=== PATIENT | female | born 1980 | race Caucasian/White ===

== ENCOUNTER 2018-06-22 08:00 | Outpatient (CLI) | payer BC | END 2018-06-22 09:00 | disposition home or self-care (01) | LOC: D.MAMMO 08:00 | DX: Z12.31 Encounter for screening mammogram for malignant neoplasm of breast (principal) ==

== ENCOUNTER 2018-11-15 07:36 | Day surgery (SDC) | payer MEDICAID ==
[2018-10-15 16:19] LABS: HEMATOCRIT 40.4 % (36.0-48.0); HEMOGLOBIN 13.9 g/dL (12-16); MCH 29.1 pg (26.0-34.0); MCHC 34.4 g/dL (31.0-37.0); MCV 84.5 fL (80.0-100.0); RBC 4.78 10x6/uL (4.00-5.40); WBC 9.4 10x3/uL (4.8-10.8)
[~2018-11-15] VITALS: Ht 162.6 cm; Wt 68.5 kg
--- NOTE | ~2018-11-15 | OP ---
PATIENT NAME: HARIS OLEARY MEDICAL RECORD: [id number] :78 LOCATION:D.[facility] ADMISSION DATE: SURGEON: LISA ROCHA MD DATE OF OPERATION: 11/15/2018 PREOPERATIVE DIAGNOSIS: Sebaceous inclusion cyst, mid thoracic spine. POSTOPERATIVE DIAGNOSIS: Melanoma. SURGEON: Lisa Rocha MD DESCRIPTION OF TECHNIQUE: After induction of general endotracheal anesthesia, the patient was rolled prone on chest and hip rolls. The thoracic and lumbar spine were prepped and draped in usual sterile fashion. The area over the previous incision was prepped and draped in usual sterile fashion. After infiltration of 1:100,000 epinephrine and 1% lidocaine into the subcutaneous tissues, a longitudinal incision was made just off the midline above the level of the area of the previous incision. Upon entering the subdermal layer of skin, there was obvious hemorrhagic material associated with the so called sebaceous cyst. This area was approximately 1.5 cm in diameter. This hemorrhagic friable material appeared to be a melanoma grossly. It was sent to pathology. Frozen section indicated melanoma. Dr. Judd was present in the operating room. I discussed the case with Dr. Judd. Decision at that point was made to close the incision with a vertical mattress style suture and have Dr. Judd evaluate the patient in the following week and perform a surgery for melanoma with sentinel node dissection. So, therefore, I returned to the operating room and irrigated with copious amounts of Ancef irrigant solution. Meticulous hemostasis was maintained throughout the wound. I obtained a gross total resection of the melanoma, denuded the tumor wall of melanotic material. Reapproximated the skin incision with interrupted mattress style suture using 3-0 nylon. Sterile dressing was applied to the wound. The patient was awakened in good condition and taken to recovery. All counts were reported as correct. Estimated blood loss was minimal. Discussed findings with the patient after surgery. Plan for her to follow up with Dr. Judd in the following week. TRANSINT:[id number] Voice Confirmation ID: [id number] DOCUMENT ID: [id number] LISA ROCHA MD CC: [id number] DICTATION DATE: 11/28/18 0722 BURRER OPERATOR: 11/28/18 0934 [facility] 11/15/18 [place] [address]
[~2018-11-15 07:36] MED LIST: CAMILA0.35 MG PO; CYCLOBENZAPRINE10 MG PO; MAG-OXIDE400 MG PO; TOPAMAX50 MG PO; VALTREX1000 MG PO
[2018-11-15 07:56] LABS: HEMATOCRIT 41.9 % (36.0-48.0); HEMOGLOBIN 14.7 g/dL (12-16); MCH 28.8 pg (26.0-34.0); MCHC 35.1 g/dL (31.0-37.0); MCV 82.2 fL (80.0-100.0); MEAN PLATELET VOLUME 9.3 fL (7.4-10.4); RBC 5.1 10x6/uL (4.00-5.40); RDW 13.4 % (11.5-14.5); WBC 8.7 10x3/uL (4.8-10.8)
[2018-11-15 08:27] VITALS: BP 139/89; Ht 162.6 cm; Wt 68.5 kg
[2018-11-15 09:09] LABS: HCG URINE NEGATIVE (NEGATIVE)
--- NOTE | 2018-11-15 13:05 | NUR ---
PATIENT AMBULATES TO BATHROOM AND VOIDS LARGE AMOUNT IN TOILET WITHOUT DIFFICULTY
[2018-11-15] MEDS ORDERED: PERCOCET 10-321 EAC1 PO (13:34)
--- NOTE | 2018-11-15 13:40 | NUR ---
PATIENT DRESSED IN PERSONAL CLOTHING. LEFT HAND PIV DC'D WITH TIP INTACT. DISCHARGE INSTRUCTIONS REVIEWED WITH PATIENT AND SPOUSE. DISCHARGED HOME VIA WHEELCHAIR TO PRIVATE VEHICLE WITH SPOUSE
== END 2018-11-15 13:40 | disposition home or self-care (01) ==
LOC: D.OPS 07:36
PROVIDERS: Anesthesiology; ATTEND Neurological Surgery
DX: C43.59 Malignant melanoma of other part of trunk (principal); Z01.812 Encounter for preprocedural laboratory examination

== ENCOUNTER 2018-11-22 06:42 | Day surgery (SDC) | payer MEDICAID ==
[~2018-11-22] VITALS: Ht 162.6 cm; Wt 67.1 kg
--- NOTE | ~2018-11-22 | OP ---
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 POSTOPERATIVE DIAGNOSIS: Aneurysmal dermatofibroma of the back. PROCEDURE: Excision of benign back mass, totaling 3 cm. SURGEON: Aly Eng MD REPORT OF PROCEDURE: The patient was placed in the prone position and the back was prepped and draped in sterile fashion. This lesion was in the middle of the small of the back. There was a previous incision with sutures present in the midline. These sutures were removed. At this point, we ronaldo out an ovoid incision around the lesion. Using a #15 blade, this ovoid incision was cut out and electrocautery was used to dissect through the subcutaneous tissues around the mass. The mass was completely excised down to normal appearing fatty tissue. The mass was then marked appropriately and sent off for permanent specimen. The mass did not penetrate the fascia or underlying muscle tissues. The wound was then irrigated out with normal saline. The subcutaneous tissues were infused with 10 mL of 0.25% Marcaine and then reapproximated with interrupted 3-0 Vicryl and the skin was closed with running subcutaneous 5-0 Monocryl and dressed appropriately. COMPLICATIONS: None. CONDITION: Stable. ANESTHESIA: General endotracheal and local. BLOOD LOSS: Minimal. TRANSINT:[id number] Voice Confirmation ID: [id number] DOCUMENT ID: [id number] ALY ENG MD CC: LISA WILSON MD and LISA ROCHA [id number] DICTATION DATE: 11/22/18 1454 G[employer] APPEALS SPECIALIST: 11/22/18 2229 [facility] 11/22/18 [id number] [place] [id number]
[~2018-11-22 06:42] MED LIST changes: +PERCOCET 10-321 EAC1 PO
[2018-11-22 07:04] LABS: BASOPHILS 0.1 % (0-2); EOSINOPHILS 2.8 % (0-7); HEMATOCRIT 43.7 % (36.0-48.0); HEMOGLOBIN 15.2 g/dL (12-16); IMMATURE GRANULOCYTES 0.2 % (0-5); LYMPHOCYTES 20.1 % (15-50); MCH 29.1 pg (26.0-34.0); MCHC 34.8 g/dL (31.0-37.0); MCV 83.6 fL (80.0-100.0); MEAN PLATELET VOLUME 9.3 fL (7.4-10.4); MONOCYTES 9.6 % (2-11); NEUTROPHILS 67.2 % (40-80); PLATELET COUNT 296 10x3/uL (130-400); RBC 5.23 10x6/uL (4.00-5.40); RDW 13.8 % (11.5-14.5)
[2018-11-22 07:07] LABS: ANION GAP 14.6 mmol/L (8-16); CALCIUM 8.9 mg/dL (8.5-10.1); CARBON DIOXIDE 26.2 mmol/L (21.0-32.0); CREATININE - SERUM 0.9 mg/dL (0.6-1.3); POTASSIUM - SERUM 3.8 mmol/L (3.5-5.1)
[2018-11-22 07:17] LABS: INR 1.05 (0.85-1.17); PROTIME 13.2 SECONDS (11.6-15.0)
[2018-11-22 07:48] VITALS: BP 139/88; Ht 162.6 cm; Wt 67.1 kg
[2018-11-22 08:26] LABS: HCG URINE NEGATIVE (NEGATIVE)
[2018-11-22] MEDS ORDERED: PERCOCET 10-321 EAC1 PO (14:45)
--- NOTE | 2018-11-22 17:04 | NUR ---
PATIENT NAUSEATED, NO EMESIS. ZOFRAN GIVEN PER EMAR
--- NOTE | 2018-11-22 17:35 | NUR ---
PATIENT FEELS BETTER, NAUSEA AND PAIN IMPROVED. PATIENT AMBULATES TO BATHROOM AND VOIDS LARGE AMOUNT IN TOILET WITHOUT DIFFICULTY. LEFT AC PIV DC'D WITH TIP INTACT. PATIENT DRESSING IN PERSONAL CLOTHING 1750 DISCHARGE INSTRUCTIONS REVIEWED WITH PATIENT AND SPOUSE, DISCHARGED HOME VIA WHEELCHAIR TO PRIVATE VEHICLE WITH SPOUSE
== END 2018-11-22 17:50 | disposition home or self-care (01) ==
LOC: D.OPS 06:42 → D.PAN 07:30 → D.NM 07:30 → D.PAN 10:00 → D.OPS 17:50
PROVIDERS: Anesthesiology; ATTEND Surgery
DX: D23.5 Other benign neoplasm of skin of trunk (principal); Z01.812 Encounter for preprocedural laboratory examination

== ENCOUNTER → 2019-07-29 10:47 | Outpatient (CLI) | payer MEDICAID ==
[2018-11-22 07:48] VITALS: BMI 25.4
== END | disposition home or self-care (01) ==
LOC: D.US 07-24 10:00
PROVIDERS: ATTEND Family Medicine
DX: R10.2 Pelvic and perineal pain (principal)

== ENCOUNTER 2019-11-28 05:33 | Day surgery (SDC) | payer MEDICAID ==
[2019-11-26 12:10] LABS: ANION GAP 11.4 mmol/L (8-16); CALCIUM 8.9 mg/dL (8.5-10.1); CARBON DIOXIDE 25.4 mmol/L (21.0-32.0); POTASSIUM - SERUM 3.8 mmol/L (3.5-5.1)
[2019-11-26 12:15] LABS: BASOPHILS 0.4 % (0-2); EOSINOPHILS 3.6 % (0-7); HEMATOCRIT 39.2 % (36.0-48.0); HEMOGLOBIN 13.3 g/dL (12-16); IMMATURE GRANULOCYTES 0.3 % (0-5); LYMPHOCYTES 22.2 % (15-50); MCH 28.6 pg (26.0-34.0); MCHC 33.9 g/dL (31.0-37.0); MCV 84.3 fL (80.0-100.0); MEAN PLATELET VOLUME 9.3 fL (7.4-10.4); MONOCYTES 6.7 % (2-11); NEUTROPHILS 66.8 % (40-80); PLATELET COUNT 286 10x3/uL (130-400); RBC 4.65 10x6/uL (4.00-5.40); RDW 13.6 % (11.5-14.5); WBC 9.1 10x3/uL (4.8-10.8)
[~2019-11-28] VITALS: Ht 162.6 cm; Wt 77.6 kg
--- NOTE | ~2019-11-28 | OP ---
PATIENT NAME: HARIS OLEARY MEDICAL RECORD: [id number] :78 LOCATION:[facility] ADMISSION DATE: SURGEON: ALY ENG MD DATE OF OPERATION: 11/28/2019 PREOPERATIVE DIAGNOSES: 1. Pilonidal cyst. 2. Soft tissue 3 cm mass on the left upper back. 3. History of aneurysmal dermatofibroma of the back. POSTOPERATIVE DIAGNOSES: 1. Pilonidal cyst. 2. Soft tissue 3 cm mass on the left upper back. 3. History of aneurysmal dermatofibroma of the back. PROCEDURE: 1. Excision of 3 cm right mid back mass. 2. Pilonidal cystectomy. SURGEON: Aly Eng MD REPORT OF PROCEDURE: The patient's back and gluteal region were all prepped and draped in sterile fashion. The patient had a previous incision in the midline of the back that was completely healed from a resection of an aneurysmal dermatofibroma few years back. This mass was just to the right of this. We went ahead and used the same incision and using a 15 blade. We came through this incision and used electrocautery to come through this subcutaneous scar tissue. We then tunneled over to the right side and was able to encounter this firm fatty soft tissue mass. This mass was completely excised and sent off for permanent specimen. This mass was adherent to the patient's fascia, but did not penetrate through this. The mass itself was about 2 x 3 cm in greatest diameter and approximately 1 cm in depth. Once we had the mass removed, we inspected the region and saw there was no sign of any further masses, lesions or tunnels. The surrounding tissues were treated with electrocautery to stop any bleeding and then we irrigated out the wound with normal saline. A total of 10 mL of 0.25% Marcaine with epinephrine was infused into the surrounding tissues. The subcutaneous tissues were reapproximated with multiple interrupted 3-0 Vicryl and the skin was closed with running subcutaneous 5-0 Monocryl. We then approached the superior aspect of the patient's gluteal crease where there was a sacral dimple associated with a pilonidal cyst and surrounding tissue was quite firm. We made an ovoid incision 3 cm in length and using electrocautery, we came through the subcutaneous tissues around this mass. This mass extended all the way down to the tip of the coccyx. The tip of the coccyx itself appeared to be normal and then the fact that it was sticking posteriorly a little bit. Once we had this tissue completely excised, then we irrigated out the wound and any bleeding that was found, was treated with electrocautery. The subcutaneous tissues were reapproximated with multiple interrupted 3-0 Vicryl. We infused a total of 10 mL of 0.25% Marcaine with epinephrine. The skin incision was closed with a vertical mattress 2-0 nylons and then dressed appropriately. COMPLICATIONS: None. CONDITION: Stable. ANESTHESIA: General endotracheal and local. OPERATIVE REPORT [id number] HARIS OLEARY BLOOD LOSS: Minimal. TRANSINT:[id number] Voice Confirmation ID: [id number] DOCUMENT ID: [id number] ALY ENG MD CC: LISA WILSON MD [id number] DICTATION DATE: 11/28/19909 SAND POLISHER: 11/28/19 0954 [facility] [address] [place] [id number]
[~2019-11-28 05:33] MED LIST changes: +BP MED PO
[2019-11-28] MEDS ORDERED: TOPROL XL50 MG PO (05:51)
[2019-11-28 05:54] VITALS: BP 130/72; Ht 162.6 cm; Wt 77.6 kg
[2019-11-28 06:39] LABS: HCG URINE NEGATIVE (NEGATIVE)
[2019-11-28] MEDS ORDERED: HYDROCODONE-IB1 EAC3 PO (09:03)
== END 2019-11-28 10:29 | disposition home or self-care (01) ==
LOC: D.OPS 05:33 → D.PAN 07:30 → D.OPS 10:29
PROVIDERS: ATTEND Surgery
DX: L05.91 Pilonidal cyst without abscess (principal); R22.2 Localized swelling, mass and lump, trunk; E78.5 Hyperlipidemia, unspecified; I10 Essential (primary) hypertension; J45.909 Unspecified asthma, uncomplicated; Z72.0 Tobacco use; D23.9 Other benign neoplasm of skin, unspecified

== ENCOUNTER 2020-03-11 02:31 | Emergency (ER) | payer MEDICAID ==
[~2020-03-11] VITALS: Ht 162.6 cm; Wt 77.3 kg
[~2020-03-11 02:31] MED LIST changes: +HYDROCODONE-IB1 EAC3 PO; +TOPROL XL50 MG PO
[2020-03-11 02:35] VITALS: Ht 162.6 cm; Wt 77.3 kg
[2020-03-11 03:03] LABS: ANION GAP 11.3 mmol/L (8-16); CALCIUM 8.7 mg/dL (8.5-10.1); CARBON DIOXIDE 26.3 mmol/L (21.0-32.0); CREATININE - SERUM 1.4 mg/dL (0.6-1.3); POTASSIUM - SERUM 3.6 mmol/L (3.5-5.1)
[2020-03-11 03:04] LABS: BASOPHILS 0.3 % (0-2); EOSINOPHILS 3.1 % (0-7); HEMATOCRIT 42.3 % (36.0-48.0); HEMOGLOBIN 14.3 g/dL (12-16); IMMATURE GRANULOCYTES 0.2 % (0-5); LYMPHOCYTES 26.6 % (15-50); MCH 29.2 pg (26.0-34.0); MCHC 33.8 g/dL (31.0-37.0); MCV 86.5 fL (80.0-100.0); MEAN PLATELET VOLUME 9.2 fL (7.4-10.4); MONOCYTES 8.2 % (2-11); NEUTROPHILS 61.6 % (40-80); PLATELET COUNT 302 10x3/uL (130-400); RBC 4.89 10x6/uL (4.00-5.40); RDW 13.3 % (11.5-14.5); WBC 10.4 10x3/uL (4.8-10.8)
[2020-03-11 03:09] LABS: ALBUMIN 3.6 g/dL (3.4-5.0); BILIRUBIN - TOTAL 0.3 mg/dL (0.2-1.3); C-REACTIVE PROTEIN 1.8 mg/dL (0.0-0.9); PROTEIN - SERUM 7.2 g/dL (6.4-8.2)
[2020-03-11 03:24] LABS: BILIRUBIN NEGATIVE (NEGATIVE); GLUCOSE NEGATIVE (NEGATIVE); HCG URINE NEGATIVE (NEGATIVE); KETONE NEGATIVE (NEGATIVE); NITRITE NEGATIVE (NEGATIVE); SPECIFIC GRAVITY 1.015 (1.005-1.020); UROBILINOGEN NORMAL (NORMAL)
[2020-03-11 03:25] LABS: AMORPHOUS SEDIMENT <1+ /lpf (NONE SEEN); BACTERIA FEW /hpf (NEGATIVE); EPITHELIAL CELLS 0-5 /hpf (0-5); RED CELLS - URINE 0-5 /hpf (0-5); WHITE CELLS - URINE 0-5 /hpf (NEGATIVE)
[2020-03-11] MEDS ORDERED: FLOMAX0.4 MG PO (04:50)
[2020-03-11] MEDS ORDERED: MORPHINE IMMEDI15 MG PO (04:51)
[2020-03-11 05:08] VITALS: BP 147/91
== END 2020-03-11 05:10 | disposition home or self-care (01) ==
LOC: D.ER 02:31
PROVIDERS: Family Medicine
DX: N20.1 Calculus of ureter (principal); K80.20 Calculus of gallbladder without cholecystitis without obstruction; R16.0 Hepatomegaly, not elsewhere classified; I10 Essential (primary) hypertension; J45.909 Unspecified asthma, uncomplicated; R11.0 Nausea

== ENCOUNTER 2020-10-30 08:20 | Day surgery (SDC) | payer MEDICAID ==
[2020-10-27 12:13] LABS: ANION GAP 15.1 mmol/L (8-16); CALCIUM 8.7 mg/dL (8.5-10.1); CREATININE - SERUM 1.1 mg/dL (0.6-1.3); POTASSIUM - SERUM 4.1 mmol/L (3.5-5.1)
[2020-10-27 12:20] LABS: BASOPHILS 0.1 % (0-2); EOSINOPHILS 3.6 % (0-7); HEMOGLOBIN 13.9 g/dL (12-16); IMMATURE GRANULOCYTES 0.3 % (0-5); LYMPHOCYTE ABS# 1.96 10x3/uL (1.18-3.74); LYMPHOCYTES 24.7 % (15-50); MCH 28.7 pg (26.0-34.0); MCHC 33.9 g/dL (31.0-37.0); MCV 84.7 fL (80.0-100.0); MEAN PLATELET VOLUME 8.7 fL (7.4-10.4); MONOCYTES 9.2 % (2-11); NEUTROPHIL ABS# 4.94 10x3/uL (1.56-6.13); NEUTROPHILS 62.1 % (40-80); PLATELET COUNT 286 10x3/uL (130-400); RBC 4.84 10x6/uL (4.00-5.40); RDW 13.5 % (11.5-14.5)
[~2020-10-30] VITALS: Ht 162.6 cm; Wt 78.5 kg
--- NOTE | ~2020-10-30 | OP ---
PATIENT NAME: HARIS OLEARY MEDICAL RECORD: [id number] :78 LOCATION:D[facility] ADMISSION DATE: SURGEON: LAURA MEDINA MD DATE OF OPERATION: 10/30/2020 PREOPERATIVE DIAGNOSES: 1. Cervical intraepithelial neoplasia 2. 2. Dysfunctional uterine bleeding. POSTOPERATIVE DIAGNOSES: 1. Cervical intraepithelial neoplasia 2. 2. Dysfunctional uterine bleeding. PROCEDURE: 1. Endocervical curettage. 2. Hysteroscopy with endometrial curettage. 3. LEEP (loop electrical excision procedure). SURGEON: Laura Medina MD FIELD SALES EXECUTIVE: Bill De La Garza. ANESTHESIA: General. FINDINGS: After application of Lugol solution, dysplastic region of the transformation zone easily seen. At the time of endocervical curettage, scant to moderate tissue returned. With a hysteroscopy, there was no visualized lesions and active endometrium was identified. Curettage returns scant to moderate tissue. SPECIMENS REMOVED: 1. Endocervical curettings. 2. Endometrial curettings. 3. Echo and endocervix. DISPOSITION: All specimens to pathology. ESTIMATED BLOOD LOSS: Minimal. FLUIDS: 800 mL. URINE OUTPUT: Quantity sufficient void prior to this procedure. DRAINS: None. COMPLICATIONS: None. 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 The patient is consented for D&C, hysteroscopy, LEEP procedure and any indicated procedure. DESCRIPTION OF PROCEDURE: After informed consent was assured, the patient was taken to the operating room where anesthetic was obtained and she was placed in [facility] stirrups. After prepping and draping, a speculum was introduced in the vagina. Cervix visualized and grasped with a single tooth tenaculum. Using a OPERATIVE REPORT [id number] HARIS OLEARY Kevorkian curette, the cervical canal was curetted. Tissue was returned and sent to pathology. The cervix was now dilated to accommodate an Aveta hysteroscope. This hysteroscope after being primed was inserted under direct visualization without evidence of polyp, fibroid or irregularity to the endometrial lining. The Aveta morcellator was now inserted and the uterus was curetted under direct visualization. After removal of tissue, the hysteroscopy and curettage was discontinued. The cervix being prepped with strong iodine solution was now incised with LEEP wire. The anterior and posterior segment of the ectocervix was removed separately. Portions of this included endocervix. These samples were sent to pathology as well. After removing the transformation zone, the bed of the cervix was cauterized and Monsel solution applied. Sponge, lap, and needle counts were correct times two. The patient was taken down from the stirrups, awakened and went to the recovery area in stable condition. TRANSINT:[id number] Voice Confirmation ID: [id number] DOCUMENT ID: [id number] LAURA MEDINA MD CC: [id number] DICTATION DATE: 11/13/20 1409 HAT BLOCK MAKER: 11/13/20 1538 [facility] 10/30/20 [id number] [place] [address]
[~2020-10-30 08:20] MED LIST changes: +FLOMAX0.4 MG PO; +MORPHINE IMMEDI15 MG PO
[2020-10-30 09:09] VITALS: BP 128/86; Ht 162.6 cm; Wt 78.5 kg
[2020-10-30 09:21] LABS: HCG URINE NEGATIVE (NEGATIVE)
--- NOTE | 2020-10-30 16:03 | NUR ---
1445 IV REMOVED INSTRUCTIONS GIVEN AND PAIN RELIEVED
--- NOTE | 2020-10-30 16:05 | NUR ---
1445 VOIDED AND HAS SOME BLOOD NOTED IN TOILET
== END 2020-10-30 15:10 | disposition home or self-care (01) ==
LOC: D.OPS 08:20
PROVIDERS: Anesthesiology; ATTEND Obstetrics & Gynecology
DX: N87.1 Moderate cervical dysplasia (principal); N93.8 Other specified abnormal uterine and vaginal bleeding; I10 Essential (primary) hypertension; J45.909 Unspecified asthma, uncomplicated; F17.210 Nicotine dependence, cigarettes, uncomplicated

== ENCOUNTER 2020-12-11 11:30 | Outpatient (CLI) | payer MEDICAID ==
[2020-10-30 09:09] VITALS: BMI 29.7
== END 2020-12-11 23:59 | disposition home or self-care (01) ==
LOC: D.MAMMO 11:30
PROVIDERS: ATTEND Family Medicine
DX: Z12.31 Encounter for screening mammogram for malignant neoplasm of breast (principal)